=== PATIENT | female | born 2000 | race Asian ===

== ENCOUNTER 2023-03-03 12:26 | Emergency (ER) | payer OTHER, SELFPAY ==
[2023-03-03] VITALS (7 sets, daily range): BP systolic 110–138; BP diastolic 64–77; PULSE 75–94; RESP 16–18; TEMP 36.9; O2SAT 97–100
--- NOTE | ~2023-03-03 | CT_ITS ---
EXAMINATION: CT brain wo con DATE: 03/03/2023 13:55 INDICATION: syncope with trauma . TECHNIQUE: Computed tomography (CT) of the head was performed without intravenous contrast. The mA wa s adjusted according to patient size. Iterative reconstruction technique was employed. The dose-lengt h product was 605.33 mGy-cm. COMPARISON: None. FINDINGS: No acute intracranial hemorrhage or extra-axial fluid collection. No hydrocephalus, mass, or herniation. No acute ischemic infarct. Unremarkable dural venous sinus attenuation. No acute osseous abnormality. The aerated spaces are clear. IMPRESSION: No acute intracranial process. Reviewed, dictated and finalized at location K.
--- NOTE | 2023-03-03 12:28 | ECG_ITS ---
Measurements Intervals [place] Rate: 84 P: 44 [place]: 141 QRS: 5 QRSD: 94 T: 29 QT: 356 QTc: 422 Interpretive Statements SINUS RHYTHM INCOMPLETE RIGHT BUNDLE BRANCH BLOCK MINIMAL Q WAVES- HIGH LATERAL LEADS BORDERLINE ECG NO PREVIOUS ECG AVAILABLE FOR COMPARISON Electronically Signed On 03-03-2023 13:13:42 CDT by Cheng Cesar D.O.
[2023-03-03 12:53] LABS: Basophils Percent Auto 0.4 % (0.2-1.2); Eosinophils Percent Auto 0.6 % (0-4.4); Hematocrit 42.3 % (37.0-47.0); Hemoglobin 13.8 g/dL (12.0-15.0); Immature Granulocyte Absolute 0.01 K/mm3 (0.00-0.031); Immature Granulocyte Percent A 0.2 % (0-0.5); Lymphocytes Absolute Auto 2.09 K/mm3 (0.9-3.2); Lymphocytes Percent Auto 40.9 % (18.3-44.2); Mean Corpuscular HGB Conc 32.6 g/dl (32-36); Mean Corpuscular Hemoglobin 32.5 pg (26-34); Mean Corpuscular Volume 99.5 fl (80-100); Mean Platelet Volume 9.7 fl (7.4-10.4); Monocytes Absolute Auto 0.4 K/mm3 (0.1-0.6); Monocytes Percent Auto 7.2 % (2.6-8.5); Neutrophils Absolute Auto 2.6 K/mm3 (1.3-6.7); Neutrophils Percent Auto 50.7 % (45.5-73.1); Platelet Count Result 291 k/mm3 (150-375); Red Blood Count 4.25 M/mm3 (4.2-5.4); Red Cell Distribution Width 12.3 % (11.5-14.5); White Blood Count 5.1 K/mm3 (4.5-10.0)
[2023-03-03 13:11] LABS: Alanine Aminotransferase 26 U/L (6-35); Albumin Level 4.7 g/dL (3.5-5.1); Alkaline Phosphatase 66 U/L (38-126); Anion Gap 9 mmol/L (8-16); Aspartate Amino Transferase 24 U/L (14-36); Bilirubin,Total 0.7 mg/dL (0.2-1.3); Blood Urea Nitrogen 10 mg/dL (7-17); Calcium 8.8 mg/dL (8.4-10.2); Carbon Dioxide 25 mmol/L (22-30); Chloride 103 mmol/L (98-107); Estimated CRCL calculation 115 ml/min; Estimated Glomerular Filt Rate > 60; Glucose 88 mg/dL (65-110); Potassium 4.2 mmol/L (3.4-5.0); Sodium 137 mmol/L (137-145)
--- NOTE | 2023-03-03 13:37 | ED.DIZZY ---
HPI - Dizziness General Chief Complaint: Syncope Stated Complaint: syncopal episode while working out yesterday Time Seen by Provider: 03/03/23 12:50 Source: patient Mode of arrival: ambulatory Limitations: no limitations History of Present Illness HPI Narrative: This is a 22-year-old female who presents to the ED with chief complaint of 1 syncopal episode that occurred yesterday. Patient states that she was doing a harder workout than normal when she started to feel a little dizzy and nauseous. Patient states that she went home and sat on the couch and then when she stood up, she felt like she had to sit back down on her couch. After that she thinks she passed out. Reports an abrasion to the left side of the scalp. States she was seen at urgent care today and referred to the ER for further evaluation. Denies any further episodes of syncope or near syncope. Denies any current dizziness, numbness, weakness. Denies any fevers, chills, abdominal pain, nausea, vomiting, chest pain, shortness of breath. States she never had any chest pain or shortness of breath. Denies any family history of sudden cardiac . Denies any cardiac history. Review of Systems Review of Systems: CONSTITUTIONAL: Denies fever, chills, or sweats. EYES: Denies visual changes, redness, or discharge. ENT: Denies rhinorrhea, congestion, sore throat, or otalgia. CARDIOVASCULAR: See HPI RESPIRATORY: Denies cough or dyspnea. GASTROINTESTINAL: Denies abdominal pain, nausea, vomiting, or diarrhea. GENITOURINARY: Denies dysuria or hematuria. SKIN: Denies rash or itching. MUSCULOSKELETAL: Denies back pain, joint pain, or myalgia. NEUROLOGIC: Denies headache, numbness, dizziness, or weakness. PSYCHIATRIC: Denies anxiety or depression. Exam Narrative: GENERAL: Well-appearing, well-nourished, and in no acute distress. HEAD: Normocephalic, atraumatic. EYES: PERRLA and EOMI. ENT: Nares clear, no rhinorrhea or epistaxis. Mucous membranes moist. Oropharynx without tonsillar hypertrophy exudate or other lesions. NECK: Supple. No adenopathy or masses. CHEST: No respiratory distress. Clear to auscultation. No wheezes rales or rhonchi HEART: Regular rate and rhythm. No murmur heard. Normal peripheral pulses. ABDOMEN: Soft, nontender, nondistended, normal active bowel sounds. MSK: Normal range of motion. No edema. SKIN: Warm, dry, no rash. NEURO: Alert and oriented x3. No focal deficits. PSYCH: Normal mood and affect. Course Vital Signs Vital signs: Vital Signs Temperature 98.4 F 03/03/23 12:52 Pulse Rate 83 03/03/23 12:52 Respiratory Rate 18 03/03/23 12:52 Blood Pressure 121/70 03/03/23 12:52 Pulse Oximetry 100 03/03/23 12:52 Oxygen Delivery Room Air 03/03/23 12:52 Temperature 98.4 F 03/03/23 12:52 Pulse Rate 82 03/03/23 14:27 Respiratory Rate 16 03/03/23 14:27 Blood Pressure 110/64 03/03/23 14:27 Pulse Oximetry 100 03/03/23 14:27 Oxygen Delivery Room Air 03/03/23 12:52 MDM - Dizziness MDM Narrative Medical decision making narrative: This is a 22-year-old female who presents to the ED with chief complaint of 1 episode of syncopal episode. Vitals are stable. Physical exam is grossly unremarkable. EKG shows sinus rhythm. Lab work is unremarkable. CT head is negative. Overall her symptoms are consistent with either a vasovagal or orthostatic response. She is currently asymptomatic. She will be discharged in stable condition. Supportive measures at home discussed. Meclizine given for any dizziness. Return precautions given. Patient is understanding and agreeable to plan for discharge and follow-up with PCP. Lab Data 03/03/23 12:46 03/03/23 12:46 Labs: Lab Results 03/03/23 Range/Units 12:46 WBC 5.1 (4.5-10.0) K/mm3 RBC 4.25 (4.2-5.4) M/mm3 Hgb 13.8 (12.0-15.0) g/dL Hct 42.3 (37.0-47.0) % MCV 99.5 (80-100) fl MCH 32.5 (26-34) pg MCHC 32.6 (
== END 2023-03-03 14:31 | disposition home or self-care (01) ==
PROVIDERS: Emergency Medicine; Emergency Provider Physician Assistant
DX: R55 Syncope and collapse (principal); I45.10 Unspecified right bundle-branch block
CPT/HCPCS: 36415; 70450; 80053; 81025; 85025; 93005; 99284